=== PATIENT | female | born 1990 | race Caucasian/White ===

== ENCOUNTER 2019-11-29 19:14 | Emergency (ER) | payer BC, SELFPAY ==
--- NOTE | 2019-11-29 19:27 | HMH.EDUTC ---
[facility] [place] Impression: Low back pain Qualifiers: Chronicity: acute Back pain laterality: midline Sciatica presence: without sciatica Qualified Code(s): M54.5 - Low back pain Disposition: Home, Self-Care Condition on Discharge: Good Instructions: DI for Low Back Pain Additional Instructions: F/U with PCP next week Referrals: Arielle Banuelos APRN [Primary Care Provider] - Time of Disposition: 20:00 Medical Decision Making - Dillon Inquiry Pt receiving controlled substance: No Vital Signs: 11/29/19 19:35 Temperature 98.0 F Temperature Source Oral Pulse Rate [Right Brachial] 88 Respiratory Rate 20 Blood Pressure [Right Arm] 121/67 Blood Pressure Mean [Right Arm] 85 Blood Pressure Source [Right Arm] Automatic Cuff Blood Pressure Position [Right Arm] Sitting 02 Sat by Pulse Oximetry 97 Oxygen Delivery Method Room Air Orders (Tests/Meds): ED MEDICATIONS Generic Name Dose Route Start Last Admin Trade Name Freq PRN Reason Stop Dose Admin Ketorolac Tromethamine 60 mg 11/29/19 19:57 Toradol 60mg/2ml Vial IM 11/29/19 19:58 ONCE ONE Methylprednisolone Acetate 80 mg 11/29/19 19:57 Depo-Medrol 40mg/Ml Vial IM 11/29/19 19:58 ONCE ONE ORDERS Category Date Time Status XR lumbar spine 2-3V Stat Exams 11/29/19 19:32 Taken - Radiology Data #1 Image(s): L-Spine Image Reviewed: Yes I reviewed the patient's radiology image Preliminary Findings: Normal/NAD [facility] [place] - General Stated complaint: Back pain Time Seen by Provider: 11/29/19 19:27 - History of Present Illness Provider Complaint: Back pain off and on for years, worse past few weeks. 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 Pain in low mid back. Radiates to hips. Not into buttocks or down legs. No relief with NSAIDs, lidoderm patch. Nothing makes it better or worse. Onset (ago): week(s) (3) Location: back Relieving factors: none Exacerbating factors: none Associated symptoms: denies other symptoms Treatments prior to arrival: NSAID, cold therapy - Related Data Home Medications Medication Instructions Recorded Confirmed atenoloL [Atenolol 25mg Tab] 6.25 mg PO DAILY 11/29/19 11/29/19 Allergies Allergy/AdvReac Type Severity Reaction Status Date / Time No Known Allergies Allergy Verified 11/29/19 19:40 [facility] History - Hepatitis A Screen Attestation statement:: This patient has been screened for Hepatitis A risk factors. I have reviewed the patient's past medical history: Yes ROS Obtained: Yes All systems reviewed & no additional complaints - Musculoskeletal Musculoskeletal: Reports back pain Physical Exam - General General appearance: alert, in no apparent distress - Head Head exam: atraumatic, normocephalic, normal inspection - Eye Eye exam: Present: normal appearance, PERRL, EOMI - ENT ENT exam: Present: normal exam, normal oropharynx, mucous membranes moist, TM's normal bilaterally, normal external ear exam - Neck Neck exam: Present: normal inspection, full ROM, trachea midline. Absent: meningismus, lymphadenopathy - Chest Chest inspection: Present: normal inspection, symmetric chest wall rise. Absent: tenderness - Respiratory Respiratory exam: Present: normal lung sounds bilaterally. Absent: respiratory distress - Cardiovascular Cardiovascular exam: Present: regular rate, normal rhythm. Absent: JVD - Abdominal Exam Abdominal exam: Present: soft, normal bowel sounds. Absent: distention, tenderness, guarding - Extremities Exam Extremities exam: Present: normal inspection, full ROM, normal capillary refill. Absent: calf tenderness - Back Exam Back exam: Present: normal inspection, full ROM, tenderness. Absent: muscle spasm, paraspinal tenderness, sciatic notch tenderness (R), sciatic notch tenderness (L) - Neurological Exam Neurological exam: Present: alert, oriented X3 - Psychiatric Psychiatric exam: Present: normal affect, normal m
--- NOTE | 2019-11-29 19:32 | XR_ITS ---
PROCEDURE: XR LUMBAR SPINE 2-3V CLINICAL INDICATION: PAIN COMPARISON: No exams were available for comparison FINDINGS: No fracture or dislocation. No lytic or blastic change. There is normal mineralization. There is mild thoracolumbar curvature convex right and there is straightening of the lumbar lordosis which could be due to patient positioning or muscle spasm. There is some decrease in the L5-S1 disc space. There is a mild amount of retained colonic feces. IMPRESSION: Decrease in the L5-S1 disc space which could be related to degenerative disc disease with straightening of the lumbar lordosis and mild thoracolumbar scoliosis Dictated b Uri Higginbotham MD 11/30/2019 07:16 Uri Higginbotham MD in [place] 11/30/2019 07:16
[2019-11-29 19:35] VITALS: BP 121/67; PULSE 88; RESP 20; TEMP 36.7; O2SAT 97; BMI 25.2
[2019-11-29 20:08] VITALS: BP 121/67; PULSE 88; RESP 20; TEMP 36.7; O2SAT 97
[2019-11-29 20:20] LABS: Apearance,Urine Clear (Clear); Color,Urine Yellow (Yellow)
[2019-11-29 20:21] LABS: Bilirubin,Urine Negative (Negative); Blood, Urine Negative (Negative); Glucose,Urine (UA) Negative (Negative); Ketones,Urine Negative (Negative); PH,Urine 6.5 (5.0-8.5); Protein,Urine Negative (Negative); Specific Gravity, Urine 1.015 (1.005-1.030); UTC Leukocyte Esterase,Urine Negative (Negative); UTC Nitrate,Urine Negative (Negative); Urobilinogen,Urine 0.2 EU/dl (0.2)
== END 2019-11-29 20:11 | disposition home or self-care (01) ==
PROVIDERS: Emergency Provider Physician Assistant; PCP Nurse Practitioner
DX: M54.5 Low back pain (principal); I49.9 Cardiac arrhythmia, unspecified; Z79.899 Other long term (current) drug therapy
CPT/HCPCS: 72100; 81003; 96372; 99202; J1030

== ENCOUNTER 2020-03-09 18:12 | Emergency (ER) | payer BC, SELFPAY ==
--- NOTE | 2020-03-09 18:12 | ECG_ITS ---
APPROVED REPORT Exam: Resting ECG HR:64 bpm ECG Measurements Heart Rate 64 AXES NJ 160 P 68 QRSd 94 QRS 80 QT 418 T 56 QTc 431 Conclusion Sinus rhythm with marked sinus arrhythmia Otherwise normal ECG Electronically signed by : Kamari Zelaya, 03/10/2020 06:24:41
[2020-03-09 18:18] VITALS: BP 114/74; BP 129/88; PULSE 60; PULSE 62; RESP 16; TEMP 36.7; O2SAT 100; O2SAT 98; BMI 25.4
[2020-03-09 18:48] VITALS: BP 119/69; PULSE 65; O2SAT 100
[2020-03-09 19:08] LABS: Basophils # 0.1 K/mm3 (0-0.2); Basophils % 0.9 % (0.1-2.0); Eosinophils # 0.5 K/mm3 (0.0-0.4); Eosinophils % 4.5 % (0.1-12.0); Hemoglobin 15.3 g/dL (12.2-16.2); Lymphocytes # 4.6 K/mm3 (0.7-4.5); Lymphocytes % 43.2 % (10-50); Mean Corpuscular HGB Conc 32.6 g/dL (31.8-35.4); Mean Corpuscular Hemoglobin 30.5 pg (27.0-31.2); Mean Corpuscular Volume 93.6 fl (81-99); Mean Platelet Volume 8.3 fl (7.4-10.4); Monocytes # 0.8 K/mm3 (0.1-1.0); Neutrophils # 4.8 K/mm3 (1.8-7.8); Neutrophils % 44.3 % (37.0-80.0); Platelet Count 334 K/mm3 (142-424); Red Blood Count 5.02 M/mm3 (4.20-5.40); White Blood Count 10.7 K/mm3 (4.8-10.8)
[2020-03-09 19:13] LABS: Chloride 101 mmol/L (98-107); Potassium 3.8 mmoL/L (3.5-5.1); Sodium 140 mmol/L (136-145)
[2020-03-09 19:16] LABS: Anion Gap 13.8 mEq/L (5-15); Blood Urea Nitrogen 10 mg/dl (7-17); Calcium 9.6 mg/dl (8.4-10.2); Carbon Dioxide 29 mmol/L (22.0-30.0); Creatinine Clearance Estimated 111 mL/min (50-200); Estimated Glomerular Filt Rate 85 ml/min (>60); GFR (African American) 103 ML/MIN (>60); Glucose 103 mg/dl (74-100)
[2020-03-09 19:39] LABS: Troponin I < 0.01 ng/ml (0.00-0.034)
--- NOTE | 2020-03-09 19:43 | HMH.EDGENADL ---
ED Disposition Clinical Impression: Atypical chest pain Disposition: Home, Self-Care Condition on Discharge: Fair Instructions: DI for Atypical Chest Pain Additional Instructions: Checked your labs and see no acute findings would advise follow-up with PCP in case your pain in the versus Referrals: Arielle Banuelos APRN [Primary Care Provider] - Time of Disposition: 19:52 - Critical Care Critical Care Time: No Attestation: On 03/09/20, the high probability of a clinically significant, sudden or life threatening deterioration of the following system(s) required my full and direct attention, intervention and personal management. The time I documented below is in addition to time spent performing reported procedures but includes the following listed in this critical care notation. Medical Decision Making - Medical Records Medical records reviewed: Yes: I reviewed the patient's medical records. MR Comment: Pt reports L arm pain radiating from lower arm upward, pt reports has been having intermittent pain for a couple months , pt reports today the pain began radiating into the L side of her neck. Pt reports at times pt radiates into L side of her chest. Pt reports pain is a tight, pressure feeling. Pt reports pain is at rest and activity. Reviewed patient's labs including CBC CMP and troponin and they are all within normal limits plan is to send patient home with reassurance that this is not a heart problem at this time would advise her if this persists get follow-up with her PCP - Dillon Goins Pt receiving controlled substance: No Vital Signs: 03/09/20 18:18 03/09/20 18:48 Temperature 98.0 F Temperature Source Oral Pulse Rate [Right Radial] 60 65 Respiratory Rate 16 Blood Pressure [Left Arm] 114/74 119/69 Blood Pressure Mean [Left Arm] 87 85 Blood Pressure Source [Left Arm] Automatic Cuff Automatic Cuff Blood Pressure Position [Left Arm] Sitting Sitting 02 Sat by Pulse Oximetry 100 100 Oxygen Delivery Method Room Air Room Air - Lab Data Lab Results 03/09/20 19:01: WBC 10.7, RBC 5.02, Hgb 15.3, Hct 47.0, MCV 93.6, MCH 30.5, MCHC 32.6, RDW 13.0, Plt Count 334, MPV 8.3, Neut % (Auto) 44.3, Lymph % (Auto) 43.2, [place] % (Auto) 7.0, Eos % (Auto) 4.5, Baso % (Auto) 0.9, Neut # (Auto) 4.8, Lymph # (Auto) 4.6 H, [place] # (Auto) 0.8, Eos # (Auto) 0.5 H, Baso # (Auto) 0.1 03/09/20 19:01: Sodium 140, Potassium 3.8, Chloride 101, Carbon Dioxide 29, Anion Gap 13.8, BUN 10, Creatinine 0.80, Estimated Creat Clear 111, Estimated GFR 85, Est GFR ( Amer) 103, Glucose 103 H, Calcium 9.6, Troponin I < 0.01 Result diagrams: 03/09/20 19:01 03/09/20 19:01 Orders (Tests/Meds): ORDERS Category Date Time Status XR chest 2V Stat Exams 03/09/20 19:32 Ordered Troponin I Q3H Lab 03/09/20 22:00 Ordered Troponin I Q3H Lab 03/10/20 01:00 Ordered General Adult HPI - General Chief complaint: PAIN Stated complaint: LUE pain Time Seen by Provider: 03/09/20 19:30 Mode of Arrival: Ambulatory Source of Information: Patient Limitations: No Limitations Description of Symptoms (Recalled from ER Triage Doc. by RN): Pt reports L arm pain radiating from lower arm upward, pt reports has been having intermittent pain for a couple months , pt reports today the pain began radiating into the L side of her neck. Pt reports at times pt radiates into L side of her chest. Pt reports pain is a tight, pressure feeling. Pt reports pain is at rest and activity. Pt reports hx of tachycardia - History of Present Illness HPI narrative: Pt reports L arm pain radiating from lower arm upward, pt reports has been having intermittent pain for a couple months , pt reports today the pain began radiating into the L side of her neck. Pt reports at times pt radiates into L side of her chest. Pt reports pain is a tight, pressure feeling. Pt reports pain is at rest and activity. Onset (ago): month(s) Location: chest Radiation: distal
[2020-03-09 19:51] LABS: HCG Qualitative, Serum Negative (Negative)
[2020-03-09 19:54] VITALS: BP 123/75; PULSE 75; RESP 16; TEMP 36.6; O2SAT 98
== END 2020-03-09 20:00 | disposition home or self-care (01) ==
PROVIDERS: Emergency Provider Emergency Medicine; PCP Nurse Practitioner
DX: M79.622 Pain in left upper arm (principal); R07.89 Other chest pain
CPT/HCPCS: 80048; 84484; 84703; 85025; 93005; 99283

== ENCOUNTER 2020-07-02 09:50 | Emergency (ER) | payer BC, SELFPAY ==
[2020-07-02 09:57] VITALS: BP 112/67; PULSE 80; RESP 16; TEMP 36.8; O2SAT 97; BMI 24.5
--- NOTE | 2020-07-02 10:07 | HMH.EDUTC ---
[facility] [place] Clinical Impression: URI (upper respiratory infection) Qualifiers: URI type: unspecified URI Qualified Code(s): J06.9 - Acute upper respiratory infection, unspecified Disposition: Home, Self-Care Condition on Discharge: Good Instructions: Sore Throat, Allergic Rhinitis, DI for Sinusitis, DI for COVID-19 (Suspected or Confirmed ) Additional Instructions: *Monitor Temp, Over the counter Motrin or Tylenol as directed/as needed Tylenol every 4 hours and Motrin every 6 hours (as long as your family doctor has told you that you can take it) for fever or pain. and straight to ER if unable to lower temp less than 101.0 after medication given *Warm salt water gargles may help to soothe the throat *Throat Lozenges *Warm fluids like tea with honey may help to soothe the throat *Sleep elevated *Humidifier/Vaporizer *Flonase 2 sprays in each nostril daily but be aware that it may take 2-3 days before you notice improvement *Make sure you are drinking plenty of water Follow up IMMEDIATELY for new or worsening symptoms or no Noticeable improvement over the next 48-72 hours. 911 for difficulty breathing or swallowing You were tested for today for COVID19 your test result should be back in the next 24-48 hours, you may call to the [facility] [[email or web address]] to see if your test results are back in the next 48 hours [phone] [facility] [[email or web address]] hours are 9am-9pm You was given a handout with instructions for Self Quarantine and Self isolation for while you wait on test results and what to do if they are positive If you are positive the Health Dept will be contacting you also Prescriptions: Fluticasone Propionate [Flonase 50mcg nasal spray 16gm] 1 spr NS DAILY #1 bottle Transmission Status: Pending to [facility] Azithromycin [Z-Ramo 250mg Tab] 250 mg PO DIRECTED #6 tab Transmission Status: Pending to [facility] Referrals: PCP,No [Non-Staff] - As needed Forms: Work/School Release Time of Disposition: 10:14 Medical Decision Making - Dillon Inquiry Pt receiving controlled substance: No Dillon was queried for this patient: No Vital Signs: 07/02/20 09:57 Temperature 98.3 F Temperature Source Oral Pulse Rate [Right] 80 Respiratory Rate 16 Blood Pressure [Right Arm] 112/67 Blood Pressure Mean [Right Arm] 82 Blood Pressure Position [Right Arm] Sitting 02 Sat by Pulse Oximetry 97 Oxygen Delivery Method Room Air Orders (Tests/Meds): ORDERS Category Date Time Status Covid-19 Nasal PCR ([facility]) Routine Lab 07/02/20 09:35 Received [facility] [place] HPI - General Stated complaint: covid test Time Seen by Provider: 07/02/20 10:07 Mode of Arrival: Ambulatory Source of Information: Patient Limitations: No Limitations Description of Symptoms (Recalled from Triage Doc. by RN): pt states shes having sinus congestion, sore throat, lump in her throat and soa that she thinks is related to her asthma. HEENT Symptoms (Recalled from RN notes): Yes (congstion, sore throat, and lump in throat) Resp Symptoms (Recalled from RN notes): Yes (soa) Skin Symptoms (Recalled from RN notes): No MS Symptoms (Recalled from RN notes): No Functional Status (Recalled from RN notes): na - History of Present Illness Provider Complaint: Patient state that she has been having some sinus pain and congestion for over a week State that she feels like her throat is swollen and hurts sometimes when she swallows State that she has asthma and at times feels like she is short of breath and wanted to get tested for COVID - Related Data Home Medications Medication Instructions Recorded Confirmed atenoloL [Atenolol 25mg Tab] 6.25 mg PO DAILY 11/29/19 03/09/20 Previous Rx's Medication Instructions Recorded Azithromycin [Z-Ramo 250mg Tab] 250 mg PO DIRECTED #6 tab 07/02/20 Fluticasone Propionate [Flonase 1 spr NS DAILY #1 bottle 07/02/20 50mcg nasal spray 16gm] Allergies Allergy/AdvReac Type Severity Reaction Status Date / Time No Known Allergi
[2020-07-02 10:14] VITALS: BP 111/63; PULSE 74; RESP 14; TEMP 36.6
== END 2020-07-02 10:19 | disposition home or self-care (01) ==
PROVIDERS: Emergency Provider Nurse Practitioner; PCP Internal Medicine
DX: Z20.822 Contact with and (suspected) exposure to COVID-19 (principal); J06.9 Acute upper respiratory infection, unspecified; J45.909 Unspecified asthma, uncomplicated
CPT/HCPCS: 99202; G0463; U0003

== ENCOUNTER 2020-08-23 17:45 | Emergency (ER) | payer BC, SELFPAY ==
--- NOTE | 2020-08-23 17:39 | ECG_ITS ---
APPROVED REPORT Exam: Resting ECG HR:79 bpm ECG Measurements Heart Rate 79 AXES MA 152 P 70 QRSd 88 QRS 78 QT 390 T 49 QTc 447 Conclusion Sinus rhythm with marked sinus arrhythmia Otherwise normal ECG Electronically signed by : Kamari Zelaya, 08/25/2020 08:51:13
[2020-08-23 17:45] VITALS: BP 143/85; PULSE 80; RESP 18; TEMP 36.7; O2SAT 98; BMI 25.0
--- NOTE | 2020-08-23 17:51 | XR_ITS ---
PROCEDURE INFORMATION: Exam: XR Chest Exam date and time: 08/23/2020 5:51 PM Age: 30 years old Clinical indication: Shortness of breath; Patient HX: SOA. PT has halter monitor on. Asthma; Additional info: Cough TECHNIQUE: Imaging protocol: XR of the chest. Views: 1 view. COMPARISON: No relevant prior studies available. FINDINGS: Tubes, catheters and devices: Holter monitor projects over the mid chest. Airway: The airways are patent. Lungs: No acute interstitial or airspace disease. There are multiple punctate pulmonary parenchymal calcifications, consistent with remote granulomatous organism exposure. Pleural spaces: There are no pleural effusions present. There is no evidence of pneumothorax. Heart/Mediastinum: Heart is of normal size and morphology. Bones/joints: No acute skeletal abnormality or aggressive osseous lesion. IMPRESSION: Negative for acute thoracic pathology.
[2020-08-23 18:05] LABS: Basophils # 0.1 K/mm3 (0-0.2); Basophils % 0.9 % (0.1-2.0); Eosinophils # 0.6 K/mm3 (0.0-0.4); Eosinophils % 5.3 % (0.1-12.0); Hematocrit 41.8 % (37.0-47.0); Hemoglobin 13.9 g/dL (12.2-16.2); Lymphocytes # 5.5 K/mm3 (0.7-4.5); Lymphocytes % 49.6 % (10-50); Mean Corpuscular HGB Conc 33.2 g/dL (31.8-35.4); Mean Corpuscular Hemoglobin 30.1 pg (27.0-31.2); Mean Corpuscular Volume 90.6 fl (81-99); Monocytes # 0.9 K/mm3 (0.1-1.0); Neutrophils # 4.1 K/mm3 (1.8-7.8); Neutrophils % 36.3 % (37.0-80.0); Platelet Count 327 K/mm3 (142-424); Red Blood Count 4.61 M/mm3 (4.20-5.40); Red Cell Distribution Width 13.1 % (11.5-17.5); White Blood Count 11.2 K/mm3 (4.8-10.8)
[2020-08-23 18:06] VITALS: BP 127/75; PULSE 76; RESP 15; O2SAT 99
[2020-08-23 18:15] LABS: Alanine Aminotransferase 27 U/L (12-78); Albumin Level 4.7 g/dl (3.5-5.0); Albumin/Globulin Ratio 1.6 (1.1-1.8); Alkaline Phosphatase 57 U/L (38-126); Anion Gap 13.5 mEq/L (5-15); Aspartate Amino Transferase 38 U/L (14-36); Bilirubin,Total 0.9 mg/dl (0.2-1.3); Blood Urea Nitrogen 9 mg/dl (7-17); Calcium 9.3 mg/dl (8.4-10.2); Carbon Dioxide 23 mmol/L (22.0-30.0); Chloride 105 mmol/L (98-107); Creatinine Clearance Estimated 128 mL/min (50-200); Estimated Glomerular Filt Rate 99 ml/min (>60); GFR (African American) 120 ML/MIN (>60); Glucose 101 mg/dl (74-100); Lipase 171 U/L (23-300); Potassium 3.5 mmoL/L (3.5-5.1); Sodium 138 mmol/L (136-145); Total Protein,Serum 7.7 g/dl (6.3-8.2)
--- NOTE | 2020-08-23 18:21 | PC.NURSE ---
Pt up to restroom
--- NOTE | 2020-08-23 18:21 | HMH.EDCP ---
ED Disposition Clinical Impression: Nonspecific chest pain Disposition: Home, Self-Care Condition on Discharge: Good Instructions: DI for Atypical Chest Pain Referrals: Provider,Vanda, [Referring] - Kamari Zelaya MD [Staff Physician] - - Critical Care Critical Care Time: No Attestation: On 08/23/20, the high probability of a clinically significant, sudden or life threatening deterioration of the following system(s) required my full and direct attention, intervention and personal management. The time I documented below is in addition to time spent performing reported procedures but includes the following listed in this critical care notation. Medical Decision Making - Medical Records Medical records reviewed: Yes: I reviewed the patient's medical records. - Dillon Inquiry Pt receiving controlled substance: No Vital Signs: 08/23/20 17:45 08/23/20 18:06 Temperature 98.1 F Temperature Source Oral Pulse Rate 76 Pulse Rate [Right] 80 Respiratory Rate 18 15 Blood Pressure 127/75 Blood Pressure [Right Arm] 143/85 H Blood Pressure Mean [Right Arm] 104 02 Sat by Pulse Oximetry 98 99 Oxygen Delivery Method Room Air Room Air - Lab Data Lab Results 08/23/20 17:53: WBC 11.2 H, RBC 4.61, Hgb 13.9, Hct 41.8, MCV 90.6, MCH 30.1, MCHC 33.2, RDW 13.1, Plt Count 327, MPV 8.0, Neut % (Auto) 36.3 L, Lymph % (Auto) 49.6, [place] % (Auto) 8.0, Eos % (Auto) 5.3, Baso % (Auto) 0.9, Neut # (Auto) 4.1, Lymph # (Auto) 5.5 H, [place] # (Auto) 0.9, Eos # (Auto) 0.6 H, Baso # (Auto) 0.1 08/23/20 17:53: Sodium 138, Potassium 3.5, Chloride 105, Carbon Dioxide 23, Anion Gap 13.5, BUN 9, Creatinine 0.70, Estimated Creat Clear 128, Estimated GFR 99, Est GFR ( Amer) 120, Glucose 101 H, Calcium 9.3, Total Bilirubin 0.9, AST 38 H, ALT 27, Alkaline Phosphatase 57, Troponin I < 0.01, Total Protein 7.7, Albumin 4.7, Globulin 3.0, Albumin/Globulin Ratio 1.6, Lipase 171, TSH 3.03 08/23/20 17:53: NT-Pro-B Natriuret Pep 124 Result diagrams: 08/23/20 17:53 08/23/20 17:53 Orders (Tests/Meds): ORDERS Category Date Time Status XR chest portable Stat Exams 08/23/20 17:51 Taken Troponin I Q3H Lab 08/23/20 21:00 Ordered Troponin I Q3H Lab 08/24/20 00:00 Ordered Urine , HCG Qual. Stat Lab 08/23/20 17:52 Ordered - Radiology Data #1 Image(s): Chest Image Reviewed: Yes I reviewed the patient's radiology results, Yes I reviewed the patient's radiology image Preliminary Findings: Normal/NAD - ECG Data Tracing #1 ECG initial impression date: 08/23/20 ECG initial impression time: 17:41 ECG normal with no acute: arrhythmias, ischemia, conduction abnormalities, chamber hypertrophy - Reevaluation(s) Time: 19:08 Reevaluation #1: On reevaluation, patient is feeling much better. She is currently chest pain-free. EKG is unremarkable. Negative troponin. Patient is low risk for acute coronary syndrome. PERC negative. Patient is to follow-up with her intravenous therapy nurse in 48 hours. Patient was given strict return precautions. Verbalized understanding. Medical Decision Narrative: 30-year-old female presented to the emergency department with chest discomfort. Patient is low risk for acute coronary syndrome. Work-up initiated. Chest Pain HPI - General Chief Complaint: Chest Pain Stated Complaint: Chest Pain Time Seen by Provider: 08/23/20 17:50 Mode of Arrival: Family Vehicle Limitations: No Limitations Description of Symptoms (Recalled from ER Triage Doc. by RN): PATIENT C/O CHEST PAIN STARTING TODAY. PT REPORTS HX OF PALPATIONS. PT IS CURRENTLY WEARING A HOLTER MONITOR TO MONITOR HEART RATE. PT ALSO REPORTS HX OF ANXIETY AND REPORTS FEELING ANXIOUS AT TIME OF TRIAGE. - History of Present Illness HPI narrative: 30-year-old female presented to the emergency department with some chest discomfort. The patient states that about 2 hours ago she had some substernal chest pain radiating to her left ar
--- NOTE | 2020-08-23 18:23 | PC.NURSE ---
Rad at bedside
[2020-08-23 18:24] LABS: NT Pro Brain Natriuretic Pep. 124 pg/mL (0-125)
[2020-08-23 18:29] LABS: Troponin I < 0.01 ng/ml (0.00-0.034)
[2020-08-23 18:46] LABS: Thyroid Stimulating Hormone 3.03 uIU/mL (0.465-4.68)
[2020-08-23 19:22] VITALS: BP 141/80; PULSE 83; RESP 20; TEMP 36.7; O2SAT 97
== END 2020-08-23 19:15 | disposition home or self-care (01) ==
PROVIDERS: Emergency Provider Emergency Medicine; PCP Internal Medicine
DX: R07.89 Other chest pain (principal); R00.2 Palpitations; F41.9 Anxiety disorder, unspecified
CPT/HCPCS: 71045; 80053; 83690; 83880; 84443; 84484; 85025; 93005; 99282

== ENCOUNTER 2023-05-09 17:21 | Emergency (ER) | payer BC, SELFPAY ==
[2023-05-09 17:30] VITALS: BP 132/78; PULSE 77; RESP 21; TEMP 36.5; O2SAT 97; BMI 29.2
--- NOTE | 2023-05-09 17:41 | ED_ITS ---
Discharge Plan Disposition Patient Disposition: Home, Self-Care Condition: Good Prescriptions Prescriptions: New benzonatate 100 mg capsule 100 mg PO TID PRN (Reason: cough) Qty: 30 0RF methylprednisolone [Medrol (Ramo)] 4 mg tablets,dose pack See Rx Instructions .Route .COMPLEX 6 Days Qty: 21 0RF Rx Instructions: taper pack; amoxicillin-pot clavulanate 875-125 mg Tablet 1 tab PO Q12H Qty: 14 0RF Referrals Follow up/Referrals: Garima Alcantara [Primary Care Provider] - See instructions Activity Restrictions/Add. Instructions Additional Instructions/Restrictions: *Monitor Temp, Over the counter Motrin or Tylenol as directed/as needed Tylenol every 4 hours and Motrin every 6 hours (as long as your family doctor has told you that you can take it) for fever or pain. and straight to ER if unable to lower temp less than 101.0 after medication given *Warm salt water gargles may help to soothe the throat *Throat Lozenges? *Warm fluids like tea with honey may help to soothe the throat? *Sleep elevated *Humidifier/Vaporizer Follow up IMMEDIATELY for new or worsening symptoms or no Noticeable improvement over the next 48-72 hours. 911 for difficulty breathing or swallowing Clinical Impressions Clinical Impression: Sinusitis Qualifiers: Sinusitis location: unspecified location Chronicity: unspecified Qualified Code(s): J32.9 - Chronic sinusitis, unspecified Instructions Patient Instructions: DI for Sinusitis, Sinusitis Discharge ED Provider: Rachel Bailey [facility] [place] General Stated complaint: sore throat,cough Mode of Arrival: Ambulatory Source of Information: Patient Limitations: No Limitations Time Seen by Provider: 05/09/23 17:41 Description of Symptoms (Recalled from Triage Doc. by RN): PATIENT C/O WEAKNESS, COUGH, RUNNY NOSE AND SNEEZING SINCE MONDAY HEENT Symptoms (Recalled from RN notes): Yes Resp Symptoms (Recalled from RN notes): Yes Skin Symptoms (Recalled from RN notes): No MS Symptoms (Recalled from RN notes): No Functional Status (Recalled from RN notes): WNL History of Present Illness Provider Complaint: Patient states that she started feeling bad on Monday with sinus congestion, sore throat, cough, fatigue and over all not feeling well States that she has continued to have symptoms and they have not improved States that today when she was still feeling bad she came in to get checked Related Data Previous Rx's Medication Instructions Recorded amoxicillin 875 mg-potassium 1 tab PO Q12H #14 tabs 05/09/23 clavulanate 125 mg tablet benzonatate 100 mg capsule 100 mg PO TID PRN cough #30 caps 05/09/23 methylprednisolone 4 mg tablets in See Rx Instructions .Route 05/09/23 a dose pack (Medrol (Ramo)) .COMPLEX 6 days #21 tabs Allergies Allergy/AdvReac Type Severity Reaction Status Date / Time No Known Allergies Allergy Verified 07/02/20 09:57 Worker's Comp Is this a Worker's Comp case?: No PFSH [facility] Disclaimer: The information contained in this section may have been updated after the patient was seen, as this information can be updated by other users. Medical History (Updated 05/09/23 @ 17:56 by Rachel Bailey APRN) Anxiety Asthma Social History Smoking Status: Never smoker alcohol intake: never current occupational status: employed Travel in the last 8 weeks: None ROS Obtained: Yes All systems reviewed & no additional complaints except as documented and Yes Systems reviewed as appropriate & no additional complaints except as documented Constitutional Constitutional: Reports system reviewed and no additional complaints, except as documented, Reports as per HPI, Reports fatigue and Reports headache(s) ENT Ears, Nose, Mouth, and Throat: Reports system reviewed and no additional complaints, except as documented, Reports as per HPI, Reports headache(s), Reports nasal congestion, Reports sinus pressure and Reports sore throat Cardiovascular Cardiovascular: Reports system reviewed and no additional complaints, except as documented and Reports as per HPI Respiratory Respiratory: Reports system reviewed and no additional complaints, except as documented, Reports as per HPI and Reports cough Gastrointestinal Gastrointestingal: Reports system reviewed and no additional complaints, except as documented and as per HPI Neurologic Neurologic: Reports headache(s) Endocrine Endocrine: Reports fatigue Physical Exam General General appearance: alert and in no apparent distress ENT ENT exam: Present mucous membranes moist Expanded ENT Exam TM/Canal exam: Bilateral TM: bulging Nose exam: Present sinus tenderness Throat exam: Present tonsillar erythema Respiratory Respiratory exam: Present normal lung sounds bilaterally; Absent respiratory distress or wheezes Cardiovascular Cardiovascular exam: Present regular rate, normal rhythm and normal heart sounds Neurological Exam Neurological exam: Present alert, oriented X3 and normal gait Medical Decision Making Dillon Inquiry Pt receiving controlled substance: No Dillon was queried for this patient: No Vital Signs: 05/09/23 17:30 Temperature 97.7 F Temperature Source Oral Pulse Rate [Right Brachial] 77 Respiratory Rate 21 Blood Pressure [Right Arm] 132/78 Blood Pressure Mean [Right Arm] 96 Blood Pressure Source [Right Arm] Automatic Cuff Blood Pressure Position [Right Arm] Sitting 02 Sat by Pulse Oximetry 97 Oxygen Delivery Method Room Air Lab Data Lab results reviewed: Yes I reviewed the patient's lab results.
[2023-05-09 17:46] LABS: UTC Influenza A Antigen Negative (Negative); UTC Influenza B Antigen Negative (Negative)
[2023-05-09 17:55] VITALS: BP 132/78; PULSE 77; RESP 21; TEMP 36.5; O2SAT 97
== END 2023-05-09 17:57 | disposition home or self-care (01) ==
PROVIDERS: Emergency Provider Nurse Practitioner; PCP Family Medicine
DX: J01.90 Acute sinusitis, unspecified (principal); R51.9 Headache, unspecified; R05.9 Cough, unspecified; R07.0 Pain in throat; R09.81 Nasal congestion; R53.83 Other fatigue
CPT/HCPCS: 87804; 99212; 99214; G0463

== ENCOUNTER 2023-11-05 16:12 | Emergency (ER) | payer BC, SELFPAY ==
[2023-11-05 16:13] VITALS: BP 121/72; PULSE 85; RESP 16; TEMP 36.8; O2SAT 98; BMI 32.3
--- NOTE | 2023-11-05 16:23 | HMH.EDGENADL ---
Discharge Plan Disposition Patient Disposition: Home, Self-Care Prescriptions Prescriptions: New pyridoxine (vitamin B6) 25 mg tablet 25 mg PO BID Qty: 60 0RF Sleep Aid (doxylamine) 25 mg tablet 12.5 mg PO HS Qty: 15 0RF No Action benzonatate 100 mg capsule 100 mg PO TID PRN (Reason: cough) Qty: 30 0RF methylprednisolone [Medrol (Ramo)] 4 mg tablets,dose pack See Rx Instructions .Route .COMPLEX 6 Days Qty: 21 0RF Rx Instructions: taper pack; amoxicillin-pot clavulanate 875-125 mg Tablet 1 tab PO Q12H Qty: 14 0RF Referrals Follow up/Referrals: Garima Alcantara [Primary Care Provider] - See instructions Activity Restrictions/Add. Instructions Additional Instructions/Restrictions: At this time it was felt you are safe to be discharged home. If new or worsening symptoms please do not hesitate to return the emergency department. Please take your medications as prescribed, please eat a low-fat diet for the remainder of your and if symptoms persist after your it will likely be worthwhile for you to follow-up with a general surgeon for outpatient cholecystectomy. Please follow-up with your OB within 1 week for repeat blood work. Clinical Impressions Clinical Impression: Biliary colic, Gallbladder sludge, Abdominal pain affecting Instructions Patient Instructions: DI for Acute Abdominal Pain Discharge ED Provider: Davy Bentley General Adult HPI General Chief complaint: Abdominal Pain Stated complaint: abdominal pain with vomiting,24 wks Time Seen by Provider: 11/05/23 16:15 History of Present Illness HPI narrative: Patient is a 33-year-old female currently 24 weeks who presents emergency department for evaluation of abdominal pain and vomiting. Onset was acute, after she ate a bowl of cereal earlier today. Vomiting is nonbloody. Last bowel movement today, normal. The pain is epigastric, does not radiate, no reported dysuria. Patient still has her gallbladder and her appendix. No chest pain. No other acute complaints at this time Related Data Previous Rx's Medication Instructions Recorded amoxicillin 875 mg-potassium 1 tab PO Q12H #14 tabs 05/09/23 clavulanate 125 mg tablet benzonatate 100 mg capsule 100 mg PO TID PRN cough #30 caps 05/09/23 methylprednisolone 4 mg tablets in See Rx Instructions .Route 05/09/23 a dose pack (Medrol (Ramo)) .COMPLEX 6 days #21 tabs doxylamine succinate 25 mg tablet 12.5 mg (1/2 x 25 mg) PO HS nausea 11/05/23 (Sleep Aid (doxylamine)) vomiting #15 tabs pyridoxine (vitamin B6) 25 mg 25 mg PO BID #60 tabs 11/05/23 tablet Allergies Allergy/AdvReac Type Severity Reaction Status Date / Time No Known Allergies Allergy Verified 07/02/20 09:57 [facility] Disclaimer: The information contained in this section may have been updated after the patient was seen, as this information can be updated by other users. Medical History (Updated 11/05/23 @ 18:21 by Davy Bentley MD) Anxiety Asthma Social History Smoking Status: Unknown if ever smoked alcohol intake: never current occupational status: employed Travel in the last 8 weeks: None ROS Obtained: Yes Systems reviewed as appropriate & no additional complaints except as documented Physical Exam General General appearance: alert and in no apparent distress Head Head exam: atraumatic and normocephalic Eye Eye exam: Present PERRL and EOMI ENT ENT exam: Present mucous membranes moist Neck Neck exam: Present normal inspection Chest Chest inspection: Present normal inspection and symmetric chest wall rise Respiratory Respiratory exam: Present normal lung sounds bilaterally; Absent respiratory distress Cardiovascular Cardiovascular exam: Present regular rate and normal rhythm Abdominal Exam Abdominal exam: Present soft, distention (Gravid) and tenderness (Mild, epigastric); Absent guarding or rebound Extremities Exam Extremities exam: Present normal inspection Neurological Exam Neurological exam: Present alert Psychiatric Psychiatric exam: Present normal affect Skin Skin exam: Present warm and dry Medical Decision Making [place] Inquiry Pt receiving controlled substance: No Vital Signs: 11/05/23 16:13 Temperature 98.2 F Temperature Source Oral Pulse Rate [Right] 85 Respiratory Rate 16 Blood Pressure [Right Arm] 121/72 Blood Pressure Mean [Right Arm] 88 Blood Pressure Source [Right Arm] Automatic Cuff 02 Sat by Pulse Oximetry 98 Oxygen Delivery Method Room Air Lab Data Lab Results 11/05/23 16:40: WBC 13.4 H, RBC 3.96 L, Hgb 12.4, Hct 37.6, MCV 94.8, MCH 31.3 H, MCHC 33.0, RDW 14.1, Plt Count 351, MPV 8.4, Neut % (Auto) 80.1 H, Lymph % (Auto) 12.7, [place] % (Auto) 6.2, Eos % (Auto) 0.8, Baso % (Auto) 0.2, Neut # (Auto) 10.8 H, Lymph # (Auto) 1.7, [place] # (Auto) 0.8, Eos # (Auto) 0.1, Baso # (Auto) 0.0, Sodium 138, Potassium 3.5, Chloride 108 H, Carbon Dioxide 25, Anion Gap 8.5, BUN 4 L, Creatinine 0.50 L, Estimated Creat Clear 198, Estimated GFR 143, Est GFR ( Amer) 173, Glucose 108 H, Calcium 9.4, Total Bilirubin 1.5 H, AST 138 H, ALT 90 H, Alkaline Phosphatase 98, Troponin I < 0.01, Total Protein 7.1, Albumin 3.8, Globulin 3.3 H, Albumin/Globulin Ratio 1.2, Lipase 99 11/05/23 16:40: Lipase 98 11/05/23 16:45: Urine Color Yellow, Urine Appearance Clear, Urine pH 7.5, Ur Specific [place] 1.010, Urine Protein Negative, Urine Glucose (UA) Negative, Urine Ketones Negative, Urine Blood Negative, Urine Nitrate Negative, Urine Bilirubin Negative, Urine Urobilinogen 1.0, Ur Leukocyte Esterase Negative 11/05/23 16:40 11/05/23 16:40 Orders (Tests/Meds): ED MEDICATIONS Discontinued Medications Generic Name Dose Route Start Last Admin Trade Name Freq PRN Reason Stop Dose Admin Acetaminophen 1,000 mg 11/05/23 16:19 11/05/23 16:55 Acetaminophen 1,000mg/100ml Vial IV 11/05/23 16:20 1,000 mg ONCE ONE Administration Doxylamine Succinate/Pyridoxine 1 tab 11/05/23 16:20 11/05/23 17:56 Doxylamine 10mg/Pyridoxine 10mg Tablet PO 11/05/23 16:21 Not Given ONCE ONE ORDERS Category Date Time Status POCUS Point of Care (ER Only) Stat Exams 11/05/23 16:21 Completed US RUQ [US abdomen limited] Stat Exams 11/05/23 17:13 Taken CBC w/Auto Diff [Complete Blood Count Auto Diff] Stat Lab 11/05/23 16:40 Completed CMP [Comprehensive Metabolic Panel] Stat Lab 11/05/23 16:40 Completed Lipase Stat Lab 11/05/23 16:40 Completed Lipase Stat Lab 11/05/23 16:40 Completed Trop I [Troponin I] Stat Lab 11/05/23 16:40 Completed Troponin I Q3H Lab 11/05/23 19:30 Ordered Troponin I Q3H Lab 11/05/23 22:30 Ordered UA [Urinalysis and Microscopic] Stat Lab 11/05/23 16:45 Results EKG Request [ECG Request] Stat Y 11/05/23 16:19 Ordered Medical Decision Narrative: In summary patient is a 33-year-old female with past medical history described above who presents emergency department for evaluation of abdominal pain and vomiting in the setting of . Patient is hemodynamically stable nontoxic-appearing upon arrival, afebrile. Differential diagnosis includes acid reflux, pancreatitis, hepatobiliary pathology, among others. Workup be conducted with hematologic labs, urinalysis, [id number] ultrasound at bedside. Initial inventions include doxylamine and vitamin B6, IV Tylenol. Initial workup reviewed by me, hematologic labs are nonactionable, there is nonspecific leukocytosis, mildly elevated bilirubin and transaminases however lipase is normal and total bilirubin is 1.5, initial troponin undetectably low. Formal ultrasound was obtained which is remarkable for significant sludge with normal common bile duct and no cholelithiasis or pericholecystic fluid identified. Case was discussed with OB on-call, patient is having biliary colic and without evidence of cholecystitis should pursue low-fat diet on an outpatient basis. Patient was given multiple return precautions and verbalized understanding. Patient will be discharged with prescription for doxylamine and vitamin B6. Procedure: Procedure performed ultrasound-guided IV placement. Procedure performed by Davy Bentley. Indication staff unable to obtain IV access and abdominal pain in setting of . Using ultrasound guidance in real-time an 18-gauge IV was anchored in the right basilic vein. Patient tolerated procedure well. There were no immediate complications. As were not saved to permanent archive. Procedure: Right upper quadrant ultrasound Indication: Abdominal pain Identified structures: -Gallbladder -Gallbladder wall Findings: Sonographic Rivera sign: Absent Gallstones: Absent Sludge: Significant amount of sludge without cholelithiasis Pericholecystic fluid: Absent Maximal GB wall thickness (mm): 2.7 mm Normal Common bile duct width (mm): Unable to identify Impression: Gallbladder without pericholecystic fluid, no cholelithiasis, no thickened wall. Common bile duct unable to be identified Images were saved to permanent archive The study was technically adequate CPT 43423-27 This study was performed by me, and I personally interpreted all images/videos. Based on my clinical judgement, these images were adequate and did not necessitate further imaging. Critical Care Critical Care Time Critical Care Time: No
[2023-11-05 16:53] LABS: Microscopic, Urine URINE MICROSCOPIC (MICROSCOPIC)
[2023-11-05 16:54] LABS: Basophils % 0.2 % (0.1-2.0); Eosinophils # 0.1 K/mm3 (0.0-0.4); Eosinophils % 0.8 % (0.1-12.0); Hematocrit 37.6 % (37.0-47.0); Hemoglobin 12.4 g/dL (12.2-16.2); Lymphocytes # 1.7 K/mm3 (0.7-4.5); Lymphocytes % 12.7 % (10-50); Mean Corpuscular Hemoglobin 31.3 pg (27.0-31.2); Mean Corpuscular Volume 94.8 fl (81-99); Mean Platelet Volume 8.4 fl (7.4-10.4); Monocytes # 0.8 K/mm3 (0.1-1.0); Monocytes % 6.2 % (1.7-9.3); Neutrophils # 10.8 K/mm3 (1.8-7.8); Neutrophils % 80.1 % (37.0-80.0); Platelet Count 351 K/mm3 (142-424); Red Blood Count 3.96 M/mm3 (4.20-5.40); Red Cell Distribution Width 14.1 % (11.5-17.5); White Blood Count 13.4 K/mm3 (4.8-10.8)
[2023-11-05] MEDS: ACETAMINOPHEN 1,000MG/100ML VIAL 1000 MG IV (16:55)
[2023-11-05 16:58] LABS: Appearance,Urine CLEAR (Clear); Bilirubin,Urine Negative (Negative); Blood, Urine Negative (Negative); Color,Urine YELLOW (Yellow); Glucose,Urine (UA) Negative (Negative); Ketones,Urine Negative (Negative); Leukocyte Esterase,Urine Negative (Negative); Nitrate,Urine Negative (Negative); PH,Urine 7.5 (5.0-8.5); Protein,Urine Negative (Negative)
[2023-11-05 17:02] LABS: Chloride 108 mmol/L (98-107); Potassium 3.5 mmoL/L (3.5-5.1); Sodium 138 mmol/L (136-145)
[2023-11-05 17:04] LABS: Lipase 98 U/L (23-300)
[2023-11-05 17:05] LABS: Alanine Aminotransferase 90 U/L (12-78); Albumin Level 3.8 g/dl (3.5-5.0); Albumin/Globulin Ratio 1.2 (1.1-1.8); Alkaline Phosphatase 98 U/L (38-126); Anion Gap 8.5 mEq/L (5-15); Aspartate Amino Transferase 138 U/L (14-36); Bilirubin,Total 1.5 mg/dl (0.2-1.3); Blood Urea Nitrogen 4 mg/dl (7-17); Calcium 9.4 mg/dl (8.4-10.2); Carbon Dioxide 25 mmol/L (22.0-30.0); Creatinine Clearance Estimated 198 mL/min (50-200); Estimated Glomerular Filt Rate 143 ml/min (>60); GFR (African American) 173 ML/MIN (>60); Globulin 3.3 g/dL (1.3-3.2); Glucose 108 mg/dl (74-100); Lipase 99 U/L (23-300); Total Protein,Serum 7.1 g/dl (6.3-8.2)
[2023-11-05 17:08] LABS: Amorphous Sediment,Urine Trace /lpf; Bacteria,Urine 1+ /lpf; WBC,Urine Occasional #/hpf (0-3)
--- NOTE | 2023-11-05 17:13 | US_ITS ---
PROCEDURE INFORMATION: Exam: US Abdomen, Limited; Right Upper Quadrant Exam date and time: 11/05/2023 5:20 PM Age: 33 years old Clinical indication: Abdominal pain; Epigastric; ; Additional info: Epigastric pain TECHNIQUE: Imaging protocol: Real time ultrasound of the abdomen with image documentation. Limited exam focused on the right upper quadrant. COMPARISON: No relevant prior studies available. FINDINGS: Liver: Normal. No masses. Gallbladder: Large amount of sludge and potential small stones in the gallbladder. No gallbladder wall thickening. No pericholecystic fluid. Presence or absence of a sonographic Rivera sign not documented. Biliary ducts: Normal. No stones. No dilation. Pancreas: Visualized pancreas is unremarkable. Right kidney: Normal. No mass. No hydronephrosis. IMPRESSION: Large amount of sludge and potential small stones in the gallbladder.
[2023-11-05 17:41] LABS: Troponin I < 0.01 ng/ml (0.00-0.034)
[2023-11-05] MEDS: DOXYLAMINE 10MG/PYRIDOXINE 10MG TABLET 1 TAB PO (18:22)
[2023-11-05 18:26] VITALS: BP 116/70; PULSE 70; RESP 16; TEMP 36.8; O2SAT 98
== END 2023-11-05 18:27 | disposition home or self-care (01) ==
PROVIDERS: Emergency Provider Emergency Medicine; PCP Family Medicine
DX: O26.892 Other specified pregnancy related conditions, second trimester (principal); R10.13 Epigastric pain; K80.50 Calculus of bile duct without cholangitis or cholecystitis without obstruction; K82.8 Other specified diseases of gallbladder; Z3A.24 24 weeks gestation of pregnancy
CPT/HCPCS: 76705; 80053; 81001; 83690; 84484; 85025; 93005; 96374; 99284; J0131

== ENCOUNTER 2024-07-01 20:07 | Emergency (ER) | payer BC, SELFPAY ==
[2024-07-01 20:10] VITALS: BP 117/64; PULSE 94; RESP 18; TEMP 37; O2SAT 98; BMI 28.1
[2024-07-01 20:20] LABS: Coronavirus 19, PCR Not Detected (NotDetected); Influenza B, PCR Not Detected (NotDetected)
--- NOTE | 2024-07-01 20:37 | XR_ITS ---
PROCEDURE INFORMATION: Exam: XR Chest Exam date and time: 07/01/2024 8:44 PM Age: 33 years old Clinical indication: Cough and fever; Additional info: Cough, fever, recent abd surgery TECHNIQUE: Imaging protocol: Radiologic exam of the chest. Views: 2 views. COMPARISON: CR XR CHEST PORTABLE 08/23/2020 6:25 PM FINDINGS: Lungs: No consolidation. Pleural spaces: No pleural effusion. No pneumothorax. Heart/Mediastinum: No cardiomegaly. Bones/joints: Unremarkable. IMPRESSION: No acute findings.
--- NOTE | 2024-07-01 20:44 | ED_ITS ---
Discharge Plan Disposition Patient Disposition: Home, Self-Care Condition: Good Prescriptions Prescriptions: New ondansetron 4 mg tablet,disintegrating 4 mg PO Q8H PRN (Reason: nausea and vomiting) 4 Days Qty: 12 0RF [id number] [Bromfed DM] 2-30-10 mg/5 mL syrup 5 ml PO Q6H PRN (Reason: allergy symptoms) Qty: 118 0RF No Action pyridoxine (vitamin B6) 25 mg tablet 25 mg PO BID Qty: 60 0RF Sleep Aid (doxylamine) 25 mg tablet 12.5 mg PO HS Qty: 15 0RF benzonatate 100 mg capsule 100 mg PO TID PRN (Reason: cough) Qty: 30 0RF methylprednisolone [Medrol (Ramo)] 4 mg tablets,dose pack See Rx Instructions .Route .COMPLEX 6 Days Qty: 21 0RF Rx Instructions: taper pack; amoxicillin-pot clavulanate 875-125 mg Tablet 1 tab PO Q12H Qty: 14 0RF Referrals Follow up/Referrals: Garima Alcantara [Primary Care Provider] - See instructions Activity Restrictions/Add. Instructions Additional Instructions/Restrictions: You were evaluated in the emergency department today and diagnosed with the flu. Please take Tylenol and ibuprofen every 4-6 hours at home as needed for pain/fever. loss prevention supervisor your prescriptions and take them as needed for symptoms. Hydrate. Return to the emergency department for new or worsening symptoms. Follow-up with your primary care provider. Clinical Impressions Clinical Impression: Influenza A Stand Alone Forms Stand Alone Forms: Work/School Release Instructions Patient Instructions: DI for Influenza -- Adult Print Language Print Language: Citizen Of [place] Discharge ED Provider: Jennifer Jerry General Adult HPI General Chief complaint: Upper Respiratory Infection Stated complaint: fever body aches Time Seen by Provider: 07/01/24 20:24 Mode of Arrival: Ambulatory Source of Information: Patient Description of Symptoms (Recalled from ER Triage Doc. by RN): Pt presents for evaluation of fever, bodyaches since yesterday. Pt does have a productive cough, states sputum is brown in color. Pt states her fever was been 103-104. pt took 800mg ibuprofen at 1930, and 1000mg tylenol at 1800. History of Present Illness HPI narrative: This patient is a 33-year-old female with a history of cholecystectomy 2 weeks ago presenting to the emergency department for evaluation concern for fever, cough, and bodyaches. She notes that she is coughing up brown sputum. Fever, cough, and bodyaches started yesterday. She denies any abdominal pain, issues with her incisions, nausea, vomiting, or other issues. She states she think she has a COVID or flu but just wants to be double check to make sure since she did have recent surgery. No urinary symptoms noted. She took Tylenol and ibuprofen prior to arrival. Related Data Previous Rx's ?Medication ?Instructions ?Recorded amoxicillin 875 mg-potassium 1 tab PO Q12H #14 tabs 05/09/23 clavulanate 125 mg tablet benzonatate 100 mg capsule 100 mg PO TID PRN cough #30 caps 05/09/23 methylprednisolone 4 mg tablets in See Rx Instructions .Route 05/09/23 a dose pack (Medrol (Ramo)) .COMPLEX 6 days #21 tabs doxylamine succinate 25 mg tablet 12.5 mg (1/2 x 25 mg) PO HS nausea 11/05/23 (Sleep Aid (doxylamine)) vomiting #15 tabs pyridoxine (vitamin B6) 25 mg 25 mg PO BID #60 tabs 11/05/23 tablet [id number]-lywnzawnwsljeng-PU 5 ml PO Q6H PRN allergy symptoms 07/01/24 2 mg-30 mg-10 mg/5 mL oral syrup #118 mL (Bromfed DM) ondansetron 4 mg disintegrating 4 mg PO Q8H PRN nausea and 07/01/24 tablet vomiting 4 days #12 tabs Allergies Allergy/AdvReac Type Severity Reaction Status Date / Time No Known Allergies Allergy Verified 07/02/20 09:57 [facility] Disclaimer: The information contained in this section may have been updated after the patient was seen, as this information can be updated by other users. Medical History Anxiety Asthma Social History Smoking Status: Never smoker alcohol intake: never current occupational status: employed Travel in the last 8 weeks: None Have you lived/traveled outside [place] in past 30 days?: No Contact w/someone who lives/traveled outside [place] past 30 days?: No Exposure to someone with infectious disease in past 14 days?: No Do you have a fever (greater than 100.4 F or 38 C)?: Yes Have you tested positive for COVID-19: No Exposed to someone with COVID-19 in past 14 days?: No Do you have a sore throat?: No Do you have a cough?: No Do you have any weakness?: No Do you have any diarrhea?: No Are you experiencing any unusual bleeding?: No Do you have any muscle aches/pain?: Yes Do you have any abdominal pain?: No Are you experiencing loss of taste or smell?: No Other Medical History Have you received the Flu Vaccine for this season: No Have you received the Pneumonia Vaccine: No ROS Obtained: Yes All systems reviewed & no additional complaints except as documented Physical Exam General General appearance: alert and in no apparent distress Head Head exam: atraumatic and normocephalic Eye Eye exam: Present normal appearance, PERRL and EOMI ENT ENT exam: Present normal exam, normal oropharynx, mucous membranes moist and n ormal external ear exam Neck Neck exam: Present normal inspection, full ROM and trachea midline; Absent tenderness Chest Chest inspection: Present normal inspection and symmetric chest wall rise; Absent tenderness Respiratory Respiratory exam: Present normal lung sounds bilaterally; Absent respiratory distress, wheezes, stridor or accessory muscle use Cardiovascular Cardiovascular exam: Present regular rate and normal rhythm Abdominal Exam Abdominal exam: Present soft; Absent distention, tenderness or guarding Extremities Exam Extremities exam: Present normal inspection, full ROM and normal capillary refill; Absent tenderness or edema Back Exam Back exam: Present normal inspection and full ROM; Absent tenderness Neurological Exam Neurological exam: Present alert, oriented X3, CN II-XII intact and normal gait; Absent motor sensory deficit Psychiatric Psychiatric exam: Present normal affect and normal mood Skin Skin exam: Present warm and dry Medical Decision Making Medical Records Medical records reviewed: Yes I reviewed the patient's medical records. Screening: Per USPSTF and CDC recommendations, given the prevalence of disease in our region, it is our hospital?s policy to screen for HIV and viral Hepatitis for all patients aged 18 and over and those with ongoing risk factors. [place] Inquiry Pt receiving controlled substance: No Vital Signs: 07/01/24 20:10 07/01/24 22:00 Temperature 98.6 F 97.8 F Temperature Source Oral Pulse Rate 83 Pulse Rate [Right] 94 H Respiratory Rate 18 14 Blood Pressure 103/60 L Blood Pressure [Right Arm] 117/64 Blood Pressure Mean [Right Arm] 81 Blood Pressure Position Sitting 02 Sat by Pulse Oximetry 98 Oxygen Delivery Method Room Air Room Air Lab Data Lab results reviewed: Yes I reviewed the patient's lab results. Lab Results 07/01/24 20:15: SARS-CoV-2 (PCR) Not detected, Influenza A Untype (PCR) Detected A, Influenza Type B (PCR) Not detected Orders (Tests/Meds): ORDERS Category Date Time Status CXR 2 view (NOT portable) [XR chest 2V] Stat Exams 07/01/24 20:37 Completed Rapid PCR Covid and Flu A/B Stat Lab 07/01/24 20:15 Completed Medical Decision Narrative: In summary, this patient is a 33-year-old presenting to the Emergency Department for evaluation of fever, cough, body aches. Differential diagnoses considered include but are not limited to viral syndrome, pneumonia, sepsis. Ruling out the most morbid conditions drove assessment. On exam, the patient is very well-appearing. She had recent cholecystectomy but has completely benign abdominal exams and incisions are healed, clean, dry, intact. Cardiopulmonary exam is reassuring with no adventitious lung sounds noted. She is nontoxic looking. I favor viral syndrome as a cause of symptoms, but given recent surgery will obtain 2 view chest x-ray. Viral swab was also sent and is pending. I independently interpreted chest x-ray prior to the radiologist read and noted no large focal consolidation concerning for pneumonia. Please see their read for final interpretation. Labs were obtained that demonstrated of influenza test, which I feel explains the patient's symptoms. At this time, feel patient is appropriate for discharge home with instructions for supportive management of flu. She was given prescriptions for Zofran and Bromfed as well as strict return precautions. She was discharged after all questions were answered Critical Care Critical Care Time Critical Care Time: No
[2024-07-01 20:54] LABS: Influenza A, PCR Detected (NotDetected)
[2024-07-01 22:00] VITALS: BP 103/60; PULSE 83; RESP 14; TEMP 36.6; O2SAT 95
== END 2024-07-01 22:01 | disposition home or self-care (01) ==
PROVIDERS: Emergency Provider Emergency Medicine; PCP Family Medicine
DX: J10.1 Influenza due to other identified influenza virus with other respiratory manifestations (principal); R50.9 Fever, unspecified; M79.10 Myalgia, unspecified site; R09.3 Abnormal sputum
CPT/HCPCS: 71046; 87636; 99283